=== PATIENT | male | born 1955 | race Two or more races ===

== ENCOUNTER 2025-03-18 15:23 | Inpatient (IN) | payer OTHER ==
[~2025-03-18] VITALS: Ht 188 cm; Wt 130.6 kg
--- NOTE | 2025-03-18 15:37 | ED.PDOC ---
HPI Comments HPI: 69y F who presents to the ED via EMS for chief complaint of tachycardia. - EMS states pt was at gastro group earlier this AM for colonscopy and states after procedure, pt has vitals checked and pt has noted heart rate in the 300's - Pt was given 3 rounds of 5 mg of labetolol and EMS arrived with noted heart rate in the 130's. - EMS states pt otherwise denies associated chest pain or associated symptoms and pt was given no interventions prior to ED arrival - pt now in the ED, with noted heart rate in the 130's with otherwise stable vitals - pt otherwise denies any other symptoms at this time Past Medical history: HLD Past Surgical history: denies Medications: statin Allergies: nkda Social History: denies ETOH, denies tobacco use, denies drug use TACHYCARDIA: HPI: Poor Historian. Colonoscopy was completed today with polyps removal. After colonoscopy under conscious sedation during recovery patient had a heart rate of 300. Patient was given three boluses of 5 mg labetalol. His heart rate is in the 130s currently. Patient denies any associated chest pain or shortness of breath. Patient denies history of hypertension. REVIEW OF SYSTEMS: CONSTITUTIONAL: Denies acute: fever, diaphoresis, chills, generalized weakness. HEAD: Denies acute: headache, photophobia Eyes: Denies acute: Double vision, vision loss, eye pain, eye discharge. EARS: Denies acute: tinnitus, hearing loss, ear discharge, ear pain, THROAT: Denies acute: sore throat, swelling, difficulty swallowing , pain with swallowing, change in voice. NECK: Denies acute: neck pain, neck swelling, stiff neck. HEART: Denies acute : chest pain, palpitations, LUNGS: Denies acute: SOB, wheezing, cough, hemoptysis ABDOMEN: Denies acute: abdominal pain, Nausea, Vomiting, diarrhea, melena , hematemesis, hematochezia SKIN: Denies acute: rash, redness, lesions, itchiness. EXTREMITIES: Denies acute: calf pain, numbness, tingling, weakness, denies pain in extremity. Denies acute: Low back pain. Neuro: Denies acute: focal neurological deficit, motor or sensory focal neurological deficit, tremors, seizure like activity, confusion, dizziness, change in mental status, loss of bowel or bladder function, cauda equina like symptoms. : Denies acute: dysuria, hematuria, flank pain, increase in urinary frequency. PSYCH: Denies acute: hallucination, suicidal ideation, homicidal ideation. PHYSICAL EXAM: General: ----no----acute distress, awake and alert. Head: normocephalic, atraumatic. Neck: supple, trachea is midline, no swelling. Throat: Normal phonation. Eyes:, no erythema, no purulent discharge, no proptosis, no icterus. Heart: regular tachycardic, no significant murmur appreciated. Lungs: no apparent respiratory distress, Able to speak in full sentences. No wheezing, no rhonchi, no crackles. No stridors Clear to auscultation bilaterally. Abdomen: non tender to palpation, non distended, soft, no guarding, no rebound, + bowel sounds. Neuro: Awake, Alert, oriented to name, self, situation, follows commands GCS=15. Speech is normal. Skin: no petechia, no purpura, no cyanosis, non-pale, not jaundice. Lower extremities: --1/4 bilateral- Pitting edema no deformity, no focal swelling, no calf TTP. Makes eye contact. moves all four extremities. Face: no apparent facial droop. ED COURSE: Time Seen by : 15:29 Reviewed Notes: Medications, Allergies Allergies: Coded Allergies: NO KNOWN ALLERGIES (Unverified , 03/18/25) Home Meds Active Scripts Carvedilol (COREG) 3.125 Mg Tab, 3.125 MG PO Q12HR, #60 TAB Prov:EVITA FRANCO MD 03/19/25 Apixaban Base (ELIQUIS) 5 Mg Tab, 5 MG PO BID, #60 TAB Prov:EVITA FRANCO MD 03/19/25 Reported Medications Dutasteride (Avodart) 0.5 Mg Cap, 1 CAP PO DAILY, #30 CAP 5 Refills 03/19/25 Atorvastatin Calcium (ATORVASTATIN CALCIUM) 20 Mg Tab, 1 TAB PO DAILY, #30 TAB 5 Refills 03/19/25 Information Source: Patient, Emergency Med Personnel Mode of Arrival: EMS Was a procedure done? Was a procedure done?: No CP Differential Dx Differential Diagnosis: A-fib, A-Flutter, Angina, Anxiety / Panic Attack, Atrial Dysrhythmia, Digoxin Toxicity, Electrolyte Disorder, Heart Failure, Hyperthyroidism, Hyperventilation, Hypoxia, MAT, NE, PAC's, Pacemaker Malfunction, PSVT, Pulmonary Embolus, PVC's, Renal Failure, Sinus Tachycardia, Torsades De Pointes, Ventricular Dysrhythmia, V-Fib, V-Tach, WPW X-Ray, Labs, Meds, VS Vital Signs Date Time Temp Pulse Resp B/P (MAP) Pulse Ox O2 Delivery O2 Flow Rate FiO2 03/18/25 17:10 56 17 108/57 (74) 94 03/18/25 17:01 118 17 89/53 (65) 92 03/18/25 16:56 138 17 77/42 (54) 93 03/18/25 16:50 113 89/53 03/18/25 16:20 133 03/18/25 16:00 137 03/18/25 15:50 138 112/74 03/18/25 15:45 98.3 136 15 112/74 (87) 95 98.3 03/18/25 15:45 136 15 95 Room Air* 0 21 03/18/25 15:44 97.9 137 16 118/92 (101) 96 97.9 03/18/25 15:35 135 Lab Test 03/18/25 17:00 03/18/25 16:31 03/18/25 15:56 Range/Units Troponin I High Sensitivity 6 6 </=54 ng/L Thyroid Stimulating Hormone (TSH) 1.74 0.55-4.78 uIU/mL POC Glucose 108 H 70-106 mg/dl White Blood Count 5.5 4.4-10.8 10^3/uL Red Blood Count 4.90 4.5-5.90 10^6/uL Hemoglobin 15.7 13.5-17.5 g/dL Hematocrit 45.0 41.0-53.0 % Mean Corpuscular Volume 91.8 80.0-100.0 fL Mean Corpuscular Hemoglobin 32.0 28.0-32.0 pg Mean Corpuscular Hemoglobin Concent 34.8 32.0-36.0 g/dL Red Cell Distribution Width 13.9 11.8-14.3 % Platelet Count 171 140-450 10^3/uL Mean Platelet Volume 8.2 6.9-10.8 fL Neutrophils (%) (Auto) 58.4 37.0-80.0 % Lymphocytes (%) (Auto) 32.3 10.0-50.0 % Monocytes (%) (Auto) 7.5 0.0-12.0 % Eosinophils (%) (Auto) 1.2 0.0-7.0 % Basophils (%) (Auto) 0.6 0.0-2.0 % Neutrophils # (Auto) 3.2 1.6-8.6 10 ^3/uL Lymphocytes # (Auto) 1.8 0.4-5.4 10 ^3/uL Monocytes # (Auto) 0.4 0-1.3 10 ^3/uL Eosinophils # (Auto) 0.1 0-0.8 10 ^3/uL Basophils # (Auto) 0 0-0.2 10 ^3/uL Nucleated Red Blood Cells 0.0 % Sodium Level 140 136-145 mmol/L Potassium Level 4.1 3.5-5.1 mmol/L Chloride Level 106 98-107 mmol/L Carbon Dioxide Level 25 20-31 mmol/L Anion Gap 9 5-15 Blood Urea Nitrogen 15 9-23 mg/dL Creatinine 1.07 0.700-1.30 mg/dL Glomerular Filtration Rate Calc 75 >90 mL/min BUN/Creatinine Ratio 14.0 10.0-20.0 Serum Glucose 99 74-106 mg/dL Lactic Acid Level 1.9 0.4-2.0 mmol/L Calcium Level 8.9 8.7-10.4 mg/dL Magnesium Level 2.0 1.6-2.6 mg/dL Total Bilirubin 0.6 0.2-1.0 mg/dL Aspartate Amino Transferase (AST) 16 13-40 U/L Alanine Aminotransferase (ALT) 24 7-40 U/L Alkaline Phosphatase 73 46-116 U/L Total Protein 6.9 5.7-8.2 g/dL Albumin 4.3 3.2-4.8 g/dL [facility] [id number] [place] [id number] Ph: [phone] DIAGNOSTIC IMAGING Diagnostic Imaging Report : [id number] Signed PATIENT: MAGUE SAWANT ACCT: [id number] UNIT: [id number] : 1955 LOC: ER ROOM / BED: / AGE / SEX: 69 / M ADM STATUS: REG ER SERVICE 1535 ORDERING PHYSICIAN: NIA HOBBS DO PROCEDURE(s): CXRP - CHEST PORTABLE REASON: tachy ORDER NUMBER(s): [id number], ACCESSION NUMBER(s): [id number] INDICATION: tachy TECHNIQUE: Frontal view of the chest. COMPARISON: None FINDINGS: Findings:. The heart and mediastinal contours are grossly unremarkable. There is no evidence of pleural disease. The lungs are clear. The bony structures of the chest are intact without fracture. IMPRESSION: 1. No evidence of acute disease. ATED BY: EVENS CORNELIUS MD DICTATED DATE/TIME: 03/18/25 1559 SIGNED BY: EVENS CORNELIUS MD SIGNED DATE/TIME: 03/18/251558 CC: Time of 1ST Reevaluation: 16:15 (As of now, all labs are still pending) Reevaluation 1ST: Unchanged Time of 2ND Reevaluation: 17:35 (The case was discussed with the admitting team (HPI, physical exam, labs and diagnostic tests that were available at the time of disposition, ED course, treatment plan) on the phone. They agreed to admit the patient to their service and assume care of this patient from this point forward. --- Tamika) Reevaluation 2ND: Resolved Patient Education/Counseling: Diagnosis, Treatment Family Education/Counseling: Other Comments Patient presented with the above HPI.--post anesthesia tachycardic----workup was initiated. patient was found with the above mentioned diagnosis. the following medications were ordered: please refer to order lists of meds and tests obtained by myself Dr. Hobbs. Patient ED course and VS have been stabilized. Patient has been reassessed in the ED and remained in a stable condition. Pertinent incidental findings were discussed with the patient and/or family. Patient/family voices understanding and is agreeable with plan. Patient has been observed in the ED adequate length of time to insure improvement/stability. Escalation of care considered: Consideration of escalation to observation or admission Patient was ADMITTED to the medicine team for further evaluation and treatment of their presentation. All the reports of any imaging studies that were ordered by myself were reviewed by myself. Departure 1 Departure Time of Disposition: 16:15 Impression: Primary Impression: Tachycardia Disposition: ADMITTED INPATIENT Admit to: Tele Condition: Guarded e-Prescriptions Carvedilol (COREG) 3.125 Mg Tab 3.125 MG PO Q12HR, #60 TAB Prov: EVITA FRANCO MD 03/19/25 Apixaban Base (ELIQUIS) 5 Mg Tab 5 MG PO BID, #60 TAB Prov: EVITA FRANCO MD 03/19/25 Discharged With: Self Critical Care Note Critical Care Time?: Yes (1 hr-critical care time only) Heart Score Heart Score: Heart Score Response (Comments) Value History Moderate Suspicious 1 EKG Normal 0 Age <45 0 Risk Factors 1 or 2 risk factors 1 Troponin Normal limit 0 Total 2 I personally scribed for NIA HOBBS DO ([email or web address]) on 03/18/25 at 15:37. Electronically submitted by Nichole Henning (DEAN). I personally scribed for NIA HOBBS DO ([email or web address]) on 03/18/25 at 17:45. Electr onically submitted by Nichole Henning (DEAN). I personally scribed for NIA HOBBS DO ([email or web address]) on 03/18/25 at 19:58. El ectronically submitted by Nichole Henning (DEAN). NIA HOBBS DO March 18, 2025 15:37
[2025-03-18 15:45] VITALS: PULSE 136; RESP 15; O2SAT 95
[2025-03-18] MEDS: SODIUM CHLORIDE 0.9% 1,000 ML IV ONE ×2 (15:50→16:56)
[2025-03-18] MEDS: LABETALOL HCL 20 MG/4 ML VL IV ONE (15:50)
--- NOTE | 2025-03-18 16:02 | DVH ---
INDICATION: tachy TECHNIQUE: Frontal view of the chest. COMPARISON: None FINDINGS: Findings:. The heart and mediastinal contours are grossly unremarkable. There is no evidence of pleu ral disease. The lungs are clear. The bony structures of the chest are intact without fracture. IMPRESSION: 1. No evidence of acute disease.
[2025-03-18 16:25] LABS: Alanine Aminotransferase 24 U/L (7-40); Albumin 4.3 g/dL (3.2-4.8); Alkaline Phosphatase 73 U/L (46-116); Anion Gap 9 (5-15); Aspartate Aminotransferase 16 U/L (13-40); Bilirubin, Total 0.6 mg/dL (0.2-1.0); Blood Urea Nitrogen 15 mg/dL (9-23); Calcium 8.9 mg/dL (8.7-10.4); Carbon Dioxide 25 mmol/L (20-31); Chloride 106 mmol/L (98-107); Glucose 99 mg/dL (74-106); Potassium 4.1 mmol/L (3.5-5.1); Sodium 140 mmol/L (136-145); Total Protein 6.9 g/dL (5.7-8.2)
[2025-03-18] MEDS ORDERED: LABETALOL INJECTION 250 MG in SODIUM CHL 0.9% 200 ML IV ONE (16:30)
[2025-03-18 16:43] LABS: Basophils # (auto) 0 10 ^3/uL (0-0.2); Basophils % (auto) 0.6 % (0.0-2.0); Eosinophils # (auto) 0.1 10 ^3/uL (0-0.8); Eosinophils % (auto) 1.2 % (0.0-7.0); Hemoglobin 15.7 g/dL (13.5-17.5); Lymphocytes # (auto) 1.8 10 ^3/uL (0.4-5.4); Lymphocytes % (auto) 32.3 % (10.0-50.0); Mean Corpuscular Hgb Conc. 34.8 g/dL (32.0-36.0); Mean Corpuscular Volume 91.8 fL (80.0-100.0); Monocytes # (auto) 0.4 10 ^3/uL (0-1.3); Monocytes % (auto) 7.5 % (0.0-12.0); Neutrophils # (auto) 3.2 10 ^3/uL (1.6-8.6); Neutrophils % (auto) 58.4 % (37.0-80.0); Platelet Count (auto) 171 10^3/uL (140-450); Red Cell Distribution Width 13.9 % (11.8-14.3); White Blood Cell 5.5 10^3/uL (4.4-10.8)
[2025-03-18] MEDS ORDERED: MORPHINE SULFATE INJ 2 MG/ml SYRG IV PRN ×2 (17:30)
[2025-03-18] MEDS ORDERED: NITROGLYCERIN 0.4 MG SL TAB SL PRN (17:30)
[2025-03-18] MEDS ORDERED: HYDROcodone-ACET 5/325MG TAB PO PRN (17:30)
[2025-03-18] MEDS ORDERED: DOCUSATE SOD 100 MG CAP PO PRN (17:30)
[2025-03-18] MEDS ORDERED: ACETAMINOPHEN 325 MG TAB PO PRN (17:30)
[2025-03-18] MEDS: SODIUM CHLORIDE 0.9% 1,000 ML IV SCH (17:53)
--- NOTE | 2025-03-18 18:48 | ECG ---
[facility] Test Date: 2025-03-18 Test Time: 18:36:58 Pat Name: MAGUE OWENS Department: 16 Room: [address] [place] [address] Gender: M Tie Presser: RADHA : 1955 Requested By: NIA HOBBS Order Number: [id number] Reading MD: Measurements Intervals Dow Rate: 116 P: 0 IL: 0 QRS: 95 QRSD: 129 T: 55 QT: 374 QTc: 520 Interpretive Statements Atrial flutter with 2:1 AV block Ventricular premature complex Nonspecific intraventricular conduction delay Anteroseptal infarct, age indeterminate Please click the below link to view image of tracing.
--- NOTE | 2025-03-18 19:07 | ECG ---
[facility] Test Date: 2025-03-18 Test Time: 15:33:14 Pat Name: MAGUE OWENS Department: ED Room: [address] [place] [address] Gender: M Shampoo Assistant: JAYDE : 1955 Requested By: NIA HOBBS Order Number: [id number] Reading MD: Measurements Intervals Alvin Rate: 135 P: 0 OR: 0 QRS: 71 QRSD: 134 T: 16 QT: 372 QTc: 558 Interpretive Statements Junctional tachycardia Nonspecific intraventricular conduction delay Borderline ST elevation, lateral leads Please click the below link to view image of tracing.
[2025-03-18 21:09] VITALS: BP 107/70; PULSE 106; PULSE 64; RESP 17; RESP 18; TEMP 97.9; O2SAT 94
[2025-03-18] MEDS: CARVEDILOL 3.125 MG TAB PO SCH (22:36)
[2025-03-19] MEDS ORDERED: DUTA0.5C11 PO (00:28)
[2025-03-19] MEDS ORDERED: ATOR20TA50 PO (00:28)
[2025-03-19 01:00] VITALS: BP 125/71; PULSE 67; RESP 17; TEMP 97.7; O2SAT 95
--- NOTE | 2025-03-19 02:24 | DVHHP2 ---
ALE SWANN PROJECT MANAGER PROCESS DEVELOPMENT 03/19/25 0224: History of Present Illness Reason for Visit: tachycardia History of Present Illness 69-year-old male was brought into the emergency department with complaints of tachycardia. Information in this HPI is limited due to the patient being a poor historian. Patient initially went into for a colonoscopy with a gastro group and heart rate went was found to be in the 300s. Patient currently denies any shortness of breath, chest pain, leg swelling, palpitations. Cardiovascular: hyperipidemia Smoke: No ALCOHOL: none Drugs: None Lives: with Family Review of Systems Constitutional: No: Fever, Chills, Sweats, Weakness, Malaise, Other Eyes: No: Pain, Vision change, Conjunctivae inflammation, Eyelid inflammation, Other, Redness ENT: No: Ear pain, Ear discharge, Nose pain, Nose discharge, Nose congestion, Mouth pain, Mouth swelling, Throat pain, Throat swelling, Other Respiratory: No: Cough, Dry, Shortness of breath, SOB with excertion, Wheezing, Hemoptysis, Pleuritic Pain, Sputum, Wheezing, Other Cardiovascular: No: Chest Pain, Palpitations, Orthopnea, Paroxysmal Noc. Dysp haseeb, Edema, Lt Headedness, Other Gastrointestinal: No: Nausea, Vomiting, Abdominal Pain, Diarrhea, Constipation, Melena, Hematochezia, Other Genitourinary: No Dysuria, No Frequency, No Incontinence, No Hematuria, No Retention, No Other Musculoskeletal: No: other, neck pain, shoulder pain, arm pain, back pain, hand pain, leg pain, foot pain Skin: No: Rash, Lesions, Jaundice, Bruising, Other Neurological: No: Weakness, Numbness, Incoordination, Change in speech, Confusion, Seizures, Other Allergies: Coded Allergies: NO KNOWN ALLERGIES (Unverified , 03/18/25) Medications Current Medications Medications Dose Ordered Sig/Estevan Route Start Time Stop Time Status Last Admin Dose Admin Sodium Chloride 1,000 ml @ 120 mls/hr Q8H20M IV 03/18/25 17:30 03/18/25 17:53 120 MLS/HR Acetaminophen/ Hydrocodone Bitart 1 tab Q4HP PRN PO 03/18/25 17:30 Docusate Sodium 100 mg BIDPRN PRN PO 03/18/25 17:30 Enoxaparin Sodium 40 mg DAILY SC 03/19/25 10:00 Acetaminophen 650 mg Q6HP PRN PO 03/18/25 17:30 Morphine Sulfate 2 mg Q4HPRN PRN IV 03/18/25 17:30 Nitroglycerin 0.4 mg Q5MINP PRN SL 03/18/25 17:30 Morphine Sulfate 2 mg Q30M PRN IV 03/18/25 17:30 Carvedilol 3.125 mg Q12HR PO 03/18/25 22:00 03/18/25 22:36 3.125 MG Exam Vital Signs Vital Signs Date Time Temp Pulse Resp B/P (MAP) Pulse Ox O2 Delivery O2 Flow Rate FiO2 03/19/25 01:00 97.7 67 17 125/71 (89) 95 97.7 03/18/25 21:09 Room Air* 0 21 General Appearance: Alert, Oriented X3, No acute distress HEENT: Atraumatic, PERRLA, EOMI Respiratory: Clear to auscultation, Normal air movement Cardiovascular: Regular rate, Normal S1, Normal S2 Abdominal: Normal bowel sounds, Soft, No tenderness Extremities: No clubbing, No cyanosis, Other (BLE edema) Skin: No rashes, No breakdown Neuro: Normal speech, Strength at 5/5 X4 ext Labs/Xrays Labs Test 03/18/25 19:04 03/18/25 17:00 03/18/25 16:31 03/18/25 15:56 Range/Units Troponin I High Sensitivity 7 </=54 ng/L Thyroid Stimulating Hormone (TSH) 1.74 0.55-4.78 uIU/mL POC Glucose 108 H 70-106 mg/dl White Blood Count 5.5 4.4-10.8 10^3/uL Red Blood Count 4.90 4.5-5.90 10^6/uL Hemoglobin 15.7 13.5-17.5 g/dL Hematocrit 45.0 41.0-53.0 % Mean Corpuscular Volume 91.8 80.0-100.0 fL Mean Corpuscular Hemoglobin 32.0 28.0-32.0 pg Mean Corpuscular Hemoglobin Concent 34.8 32.0-36.0 g/dL Red Cell Distribution Width 13.9 11.8-14.3 % Platelet Count 171 140-450 10^3/uL Mean Platelet Volume 8.2 6.9-10.8 fL Neutrophils (%) (Auto) 58.4 37.0-80.0 % Lymphocytes (%) (Auto) 32.3 10.0-50.0 % Monocytes (%) (Auto) 7.5 0.0-12.0 % Eosinophils (%) (Auto) 1.2 0.0-7.0 % Basophils (%) (Auto) 0.6 0.0-2.0 % Neutrophils # (Auto) 3.2 1.6-8.6 10 ^3/uL Lymphocytes # (Auto) 1.8 0.4-5.4 10 ^3/uL Monocytes # (Auto) 0.4 0-1.3 10 ^3/uL Eosinophils # (Auto) 0.1 0-0.8 10 ^3/uL Basophils # (Auto) 0 0-0.2 10 ^3/uL Nucleated Red Blood Cells 0.0 % Sodium Level 140 136-145 mmol/L Potassium Level 4.1 3.5-5.1 mmol/L Chloride Level 106 98-107 mmol/L Carbon Dioxide Level 25 20-31 mmol/L Anion Gap 9 5-15 Blood Urea Nitrogen 15 9-23 mg/dL Creatinine 1.07 0.700-1.30 mg/dL Glomerular Filtration Rate Calc 75 >90 mL/min BUN/Creatinine Ratio 14.0 10.0-20.0 Serum Glucose 99 74-106 mg/dL Lactic Acid Level 1.9 0.4-2.0 mmol/L Calcium Level 8.9 8.7-10.4 mg/dL Magnesium Level 2.0 1.6-2.6 mg/dL Total Bilirubin 0.6 0.2-1.0 mg/dL Aspartate Amino Transferase (AST) 16 13-40 U/L Alanine Aminotransferase (ALT) 24 7-40 U/L Alkaline Phosphatase 73 46-116 U/L Total Protein 6.9 5.7-8.2 g/dL Albumin 4.3 3.2-4.8 g/dL Assessment/Plan Assessment/Plan Tachycardia Plan Admit telemetry Cardiology consult. Echocardiogram. Continue home medications after reconciliation completed. PT evaluation. GI ppx protonix / dvt ppx lovenox Plan discussed with: Patient Date of Service: March 19, 2025 Billing Provider: EVITA FRANCO MD Common Visit Codes: NOT BILLABLE EVITA FRANCO MD 03/21/25 1720: Review of Systems Allergies: Coded Allergies: NO KNOWN ALLERGIES (Unverified , 03/18/25) ALE SWANN NP March 19, 2025 02:24 EVITA FRANCO MD March 21, 2025 17:20
[2025-03-19 05:00] VITALS: BP 111/66; PULSE 67; RESP 18; TEMP 98.1; O2SAT 98
--- NOTE | 2025-03-19 06:26 | ECG ---
[facility] Test Date: 2025-03-18 Test Time: 16:18:49 Pat Name: MAGUE OWENS Department: ED Room: 0295T Gender: M Music Intern: JAYDE : 1955 Requested By: NIA HOBBS Order Number: [id number] Reading MD: Measurements Intervals Franklin Rate: 133 P: 0 CO: 0 QRS: 64 QRSD: 106 T: 26 QT: 367 QTc: 546 Interpretive Statements Junctional tachycardia Inferior infarct, acute (LCx) Lateral leads are also involved Prolonged QT interval Please click the below link to view image of tracing.
[2025-03-19 08:00] VITALS: PULSE 53; O2SAT 95
[2025-03-19] MEDS: ENOXAPARIN SOD 40 MG/0.4 ML SYRINGE SC SCH (08:46)
[2025-03-19 09:00] VITALS: BP 124/64; PULSE 64; RESP 18; TEMP 97.4; O2SAT 93
--- NOTE | 2025-03-19 11:42 | DVHINCON2 ---
Date Seen: March 19, 2025 Reason for Consultation Tachycardia History of Present Illness This is a 69-year-old male with past medical history of dyslipidemia, hypertension, ?Sleep apnea referred to the hospital due to high heart rate. Per patient, yesterday upon performing colonoscopy his heart rate raised to 300 and the patient was referred to the hospital. Upon hospital admission, the patient EKGs showed AFib with RVR. Patient denies any symptoms including chest pain, shortness of breath, palpitation, nausea, vomiting, cough, fever, or any recent sick contact. PMHx: dyslipidemia, hypertension, ?Sleep apnea PSHx: Not significant Family history: Noncontributory Social history: Ex-smoker with 30 pack year history, denies currently any other drug use Home medication: Atorvastatin and albuterol Allergic history: No known allergy Patient seen and examined at the bedside. Patient is currently asymptomatic. Past Medical History Per H&P Past Surgical History Per H&P Family History: Cardiovascular disease G8 MOTHER G8 FATHER Allergies: Coded Allergies: NO KNOWN ALLERGIES (Unverified , 03/18/25) Home Meds Active Scripts Carvedilol (COREG) 3.125 Mg Tab, 3.125 MG PO Q12HR, #60 TAB Prov:EVITA FRANCO MD 03/19/25 Apixaban Base (ELIQUIS) 5 Mg Tab, 5 MG PO BID, #60 TAB Prov:EVITA FRANCO MD 03/19/25 Reported Medications Dutasteride (Avodart) 0.5 Mg Cap, 1 CAP PO DAILY, #30 CAP 5 Refills 03/19/25 Atorvastatin Calcium (ATORVASTATIN CALCIUM) 20 Mg Tab, 1 TAB PO DAILY, #30 TAB 5 Refills 03/19/25 Current Medications Current Medications Medications (Trade) Dose Ordered Sig/Estevan Route PRN Reason Start Time Stop Time Status Last Admin Sodium Chloride 1,000 ml @ 120 mls/hr Q8H20M IV 03/18/25 17:30 03/19/25 08:54 Acetaminophen/ Hydrocodone Bitart (Walling 5/325MG Tab) 1 tab Q4HP PRN PO MODERATE PAIN (4-6 PAIN SCALE) 03/18/25 17:30 Docusate Sodium (Colace Capsule) 100 mg BIDPRN PRN PO FOR CONSTIPATION 03/18/25 17:30 Enoxaparin Sodium (Lovenox) 40 mg DAILY SC 03/19/25 10:00 03/19/25 08:46 Acetaminophen (Tylenol Tablet) 650 mg Q6HP PRN PO PAIN SCALE 1-3 OR TEMP>100.4 03/18/25 17:30 Morphine Sulfate 2 mg Q4HPRN PRN IV SEVERE PAIN (7-10 PAIN SCALE) 03/18/25 17:30 Nitroglycerin (Ntrostat Sublingual) 0.4 mg Q5MINP PRN SL FOR CHEST PAIN 03/18/25 17:30 Morphine Sulfate 2 mg Q30M PRN IV FOR CHEST PAIN 03/18/25 17:30 Carvedilol (Coreg Tablet) 3.125 mg Q12HR PO 03/18/25 22:00 03/19/25 08:45 Vital Signs Vital Signs Date Time Temp Pulse Resp B/P (MAP) Pulse Ox O2 Delivery O2 Flow Rate FiO2 03/19/25 09:45 62 110/59 03/19/25 09:00 97.4 18 93 97.4 03/19/25 08:00 Room Air* 0 21 Physical Exam General Appearance: Alert, Oriented X3, Cooperative, No acute distress HEENT: Atraumatic, PERRLA, EOMI, Mucous membrane moist/pink Respiratory: Clear to auscultation, Normal air movement Cardiovascular: Regular rate, Normal S1, Normal S2, No murmurs, no chest wall tenderness Abdominal: Normal bowel sounds, Soft, No tenderness, No hepatospenomegaly, No masses Extremities: No clubbing, No cyanosis, No edema, Normal pulses, No tenderness/swelling Skin: No rashes, No breakdown, No significant lesion Neuro: Normal gait, Normal speech, Strength at 5/5 X4 ext, Normal tone, Sensation intact, Cranial nerves 3-12 NL, Reflexes 2+ Psych/Mental Status: Mental status NL, Mood NL Labs/Diagnostic Data Labs Test 03/19/25 09:17 03/18/25 19:04 03/18/25 17:00 03/18/25 16:31 Range/Units Plasma/Serum Blood Alcohol < 3.0 <10 mg/dL Troponin I High Sensitivity 7 </=54 ng/L Thyroid Stimulating Hormone (TSH) 1.74 0.55-4.78 uIU/mL POC Glucose 108 H 70-106 mg/dl Test 03/18/25 15:56 Range/Units White Blood Count 5.5 4.4-10.8 10^3/uL Red Blood Count 4.90 4.5-5.90 10^6/uL Hemoglobin 15.7 13.5-17.5 g/dL Hematocrit 45.0 41.0-53.0 % Mean Corpuscular Volume 91.8 80.0-100.0 fL Mean Corpuscular Hemoglobin 32.0 28.0-32.0 pg Mean Corpuscular Hemoglobin Concent 34.8 32.0-36.0 g/dL Red Cell Distribution Width 13.9 11.8-14.3 % Platelet Count 171 140-450 10^3/uL Mean Platelet Volume 8.2 6.9-10.8 fL Neutrophils (%) (Auto) 58.4 37.0-80.0 % Lymphocytes (%) (Auto) 32.3 10.0-50.0 % Monocytes (%) (Auto) 7.5 0.0-12.0 % Eosinophils (%) (Auto) 1.2 0.0-7.0 % Basophils (%) (Auto) 0.6 0.0-2.0 % Neutrophils # (Auto) 3.2 1.6-8.6 10 ^3/uL Lymphocytes # (Auto) 1.8 0.4-5.4 10 ^3/uL Monocytes # (Auto) 0.4 0-1.3 10 ^3/uL Eosinophils # (Auto) 0.1 0-0.8 10 ^3/uL Basophils # (Auto) 0 0-0.2 10 ^3/uL Nucleated Red Blood Cells 0.0 % Sodium Level 140 136-145 mmol/L Potassium Level 4.1 3.5-5.1 mmol/L Chloride Level 106 98-107 mmol/L Carbon Dioxide Level 25 20-31 mmol/L Anion Gap 9 5-15 Blood Urea Nitrogen 15 9-23 mg/dL Creatinine 1.07 0.700-1.30 mg/dL Glomerular Filtration Rate Calc 75 >90 mL/min BUN/Creatinine Ratio 14.0 10.0-20.0 Serum Glucose 99 74-106 mg/dL Lactic Acid Level 1.9 0.4-2.0 mmol/L Calcium Level 8.9 8.7-10.4 mg/dL Magnesium Level 2.0 1.6-2.6 mg/dL Total Bilirubin 0.6 0.2-1.0 mg/dL Aspartate Amino Transferase (AST) 16 13-40 U/L Alanine Aminotransferase (ALT) 24 7-40 U/L Alkaline Phosphatase 73 46-116 U/L Total Protein 6.9 5.7-8.2 g/dL Albumin 4.3 3.2-4.8 g/dL Assessment Atrial fibrillation (stage IIIA), with RVR, currently sinus rhythm Hypercoagulable state Hypertension Dyslipidemia ? Sleep apnea Obesity * EKG upon admission shows AFib with RVR, today morning EKGs shows sinus rhythm with no significant ST or T-wave changes * Trop I and BNP is are within normal limits * Chads Vasc score: 2 Plan/Recommendation Case discussed with Dr. Villaseñor) * Continue apixaban and atorvastatin * Keep K above 4, and Mag above 2 * Discharge plan: Apixaban 5 mg b.i.d., patient needs cardiac event monitoring on outpatient basis for possible ablation/antiarrhythmic treatment, he also needs sleep study to confirm sleep apnea * We sign off the patient * Rest of plan, per primary team Thank you for allowing us to participate in this patient's care. Please call if you have any questions or concerns. Plan discussed with: Patient, Spouse, Other (RN) Date of Service: March 19, 2025 Billing Provider: DELL TOMPKINS Cardiology Common Codes: [id number] INP/OBS CARE (High) CHRISTINE VELASQUEZ RESDIKIMBERLEE March 19, 2025 11:42
[2025-03-19 13:00] VITALS: BP 110/67; PULSE 60; RESP 18; TEMP 98.1; O2SAT 92
[2025-03-19] MEDS ORDERED: CARV-214 PO (14:16)
[2025-03-19] MEDS ORDERED: APIX5TAB PO (14:16)
--- NOTE | 2025-03-19 14:19 | DVHDS2 ---
Discharge Summary Date of Admission March 18, 2025 at 17:29 Date of Discharge: March 19, 2025 Labs/Diagnostic Data: Laboratory Results Test 03/19/25 09:17 03/18/25 19:04 03/18/25 17:00 03/18/25 16:31 Plasma/Serum Blood Alcohol < 3.0 mg/dL (<10) Troponin I High Sensitivity 7 ng/L (</=54) Thyroid Stimulating Hormone (TSH) 1.74 uIU/mL (0.55-4.78) POC Glucose 108 mg/dl (70-106) Test 03/18/25 15:56 White Blood Count 5.5 10^3/uL (4.4-10.8) Red Blood Count 4.90 10^6/uL (4.5-5.90) Hemoglobin 15.7 g/dL (13.5-17.5) Hematocrit 45.0 % (41.0-53.0) Mean Corpuscular Volume 91.8 fL (80.0-100.0) Mean Corpuscular Hemoglobin 32.0 pg (28.0-32.0) Mean Corpuscular Hemoglobin Concent 34.8 g/dL (32.0-36.0) Red Cell Distribution Width 13.9 % (11.8-14.3) Platelet Count 171 10^3/uL (140-450) Mean Platelet Volume 8.2 fL (6.9-10.8) Neutrophils (%) (Auto) 58.4 % (37.0-80.0) Lymphocytes (%) (Auto) 32.3 % (10.0-50.0) Monocytes (%) (Auto) 7.5 % (0.0-12.0) Eosinophils (%) (Auto) 1.2 % (0.0-7.0) Basophils (%) (Auto) 0.6 % (0.0-2.0) Neutrophils # (Auto) 3.2 10 ^3/uL (1.6-8.6) Lymphocytes # (Auto) 1.8 10 ^3/uL (0.4-5.4) Monocytes # (Auto) 0.4 10 ^3/uL (0-1.3) Eosinophils # (Auto) 0.1 10 ^3/uL (0-0.8) Basophils # (Auto) 0 10 ^3/uL (0-0.2) Nucleated Red Blood Cells 0.0 % Sodium Level 140 mmol/L (136-145) Potassium Level 4.1 mmol/L (3.5-5.1) Chloride Level 106 mmol/L (98-107) Carbon Dioxide Level 25 mmol/L (20-31) Anion Gap 9 (5-15) Blood Urea Nitrogen 15 mg/dL (9-23) Creatinine 1.07 mg/dL (0.700-1.30) Glomerular Filtration Rate Calc 75 mL/min (>90) BUN/Creatinine Ratio 14.0 (10.0-20.0) Serum Glucose 99 mg/dL (74-106) Lactic Acid Level 1.9 mmol/L (0.4-2.0) Calcium Level 8.9 mg/dL (8.7-10.4) Magnesium Level 2.0 mg/dL (1.6-2.6) Total Bilirubin 0.6 mg/dL (0.2-1.0) Aspartate Amino Transferase (AST) 16 U/L (13-40) Alanine Aminotransferase (ALT) 24 U/L (7-40) Alkaline Phosphatase 73 U/L (46-116) Total Protein 6.9 g/dL (5.7-8.2) Albumin 4.3 g/dL (3.2-4.8) Other Laboratory Tests 03/18/25 15:56 Brief Hx & Hospital Course: 69-year-old male with a known history of hypertension, BPH who underwent elective colonoscopy outpatient found to have polyps which was removed also found to have hemorrhoids presented to the hospital with heart rate into 150- 300, status post labetalol eventually found to have AFib with RVR. The patient was seen by Cardiology underwent 2D echo as well. Patient was started on Eliquis and beta wilbur. The patient currently being discharged under stable condition with close follow up as an outpatient with PCP as well as Cardiology. Condition at Discharge: Stable Final Diagnosis/Problems List 1. AFib with a RVR currently in normal sinus rhythm 2. Hypertension 3. Dyslipidemia 4. BPH 5. Morbid obesity classII Discharge Disposition: Home SNF Discharge Will this Physician continue t: No Discharge Instruct/Medications Diet: Cardiac 2g Na,low cholest Activity: No Restrictions, As Tolerated Follow Up/Referral: Follow up with the PCP in 1-2 weeks Follow up with the Cardiology in 1-2 weeks Medications: New prescription as prescribed Discharge Statement: "Patient was advised to return to the ER or call 911 if any headaches, dizziness, shortness of breath, chest pain, abdominal pain, bleeding, fevers, or worsening of medical condition. Patient was counseled about treatment plan, medications, possible side effects, patientverbalized understanding. All questions were answered to the best of my ability. This discharge took greater then 30 minutes in planning, reviewing documentation, counseling the patient, and discussing with other team members." ASSESSMENT ASSESSMENT Assessment 1. AFib with a RVR currently in normal sinus rhythm 2. Hypertension 3. Dyslipidemia 4. BPH 5. Morbid obesity classII Date of Service: March 19, 2025 Billing Provider: EVITA FRANCO MD Common Visit Codes: NOT BILLABLE EVITA FRANCO MD March 19, 2025 14:19
[2025-03-19 15:21] VITALS: BP 110/59; PULSE 62
--- NOTE | 2025-03-19 19:01 | DVHINCON2 ---
Date Seen: March 19, 2025 Referring Physician Tamika Reason for Consultation Tachycardia History of Present Illness This is a 69-year-old male with a past medical history of dyslipidemia, hypertension, ?Sleep apnea who presented to the ED with complaints of a high heart rate. Per patient, yesterday upon performing colonoscopy his heart rate raised to 300 and the patient was referred to the hospital. Upon hospital admission, the patient EKGs showed AFib with RVR. Troponin is negative x3. Chest x-ray showed NAD. Patient was admitted to the hospital. I am asked to consult on this patient. Family History: Cardiovascular disease G8 MOTHER G8 FATHER Allergies: Coded Allergies: NO KNOWN ALLERGIES (Unverified , 03/18/25) Home Meds Active Scripts Carvedilol (COREG) 3.125 Mg Tab, 3.125 MG PO Q12HR, #60 TAB Prov:EVITA FRANCO MD 03/19/25 Apixaban Base (ELIQUIS) 5 Mg Tab, 5 MG PO BID, #60 TAB Prov:EVITA FRANCO MD 03/19/25 Reported Medications Dutasteride (Avodart) 0.5 Mg Cap, 1 CAP PO DAILY, #30 CAP 5 Refills 03/19/25 Atorvastatin Calcium (ATORVASTATIN CALCIUM) 20 Mg Tab, 1 TAB PO DAILY, #30 TAB 5 Refills 03/19/25 Current Medications Current Medications Medications (Trade) Dose Ordered Sig/Estevan Route PRN Reason Start Time Stop Time Status Last Admin Sodium Chloride 1,000 ml @ 120 mls/hr Q8H20M IV 03/18/25 17:30 03/19/25 08:54 Acetaminophen/ Hydrocodone Bitart (Humphreys 5/325MG Tab) 1 tab Q4HP PRN PO MODERATE PAIN (4-6 PAIN SCALE) 03/18/25 17:30 Docusate Sodium (Colace Capsule) 100 mg BIDPRN PRN PO FOR CONSTIPATION 03/18/25 17:30 Enoxaparin Sodium (Lovenox) 40 mg DAILY SC 03/19/25 10:00 03/19/25 11:43 DC 03/19/25 08:46 Acetaminophen (Tylenol Tablet) 650 mg Q6HP PRN PO PAIN SCALE 1-3 OR TEMP>100.4 03/18/25 17:30 Morphine Sulfate 2 mg Q4HPRN PRN IV SEVERE PAIN (7-10 PAIN SCALE) 03/18/25 17:30 Nitroglycerin (Ntrostat Sublingual) 0.4 mg Q5MINP PRN SL FOR CHEST PAIN 03/18/25 17:30 Morphine Sulfate 2 mg Q30M PRN IV FOR CHEST PAIN 03/18/25 17:30 Carvedilol (Coreg Tablet) 3.125 mg Q12HR PO 03/18/25 22:00 03/19/25 08:45 Apixaban (Eliquis) 5 mg BID PO 03/19/25 22:00 Review of Systems CONSTITUTIONAL: Denies acute: fever, diaphoresis, chills, generalized weakness. HEAD:Denies acute: headache, photophobia Eyes: Denies acute: Double vision, vision loss, eye pain, eye discharge. EARS: Denies acute: tinnitus, hearing loss, ear discharge, ear pain, THROAT: Denies acute: sore throat, swelling, difficulty swallowing , pain with swallowing, change in voice. NECK:Denies acute: neck pain, neck swelling, stiff neck. HEART:Denies acute : chest pain, palpitations, LUNGS:Denies acute: SOB, wheezing, cough, hemoptysis ABDOMEN:Denies acute: abdominal pain, Nausea, Vomiting, diarrhea, melena , hematemesis, hematochezia SKIN:Denies acute: rash, redness, lesions, itchiness. EXTREMITIES: Denies acute: calf pain, numbness, tingling, weakness, denies pain in extremity. Denies acute: Low back pain. Neuro: Denies acute: focal neurological deficit, motor or sensory focal neurol ogical deficit, tremors, seizure like activity, confusion, dizziness, change in mental status, loss of bowel or bladder function, cauda equina like symptoms. : Denies acute: dysuria, hematuria, flank pain, increase in urinary frequency. PSYCH: Denies acute: hallucination, suicidal ideation, homicidal ideation. Vital Signs Vital Signs Date Time Temp Pulse Resp B/P (MAP) Pulse Ox O2 Delivery O2 Flow Rate FiO2 03/19/25 09:45 62 110/59 03/19/25 09:00 97.4 18 93 97.4 03/19/25 08:00 Room Air* 0 21 Physical Exam GENERAL: Alert and oriented x 3. No acute distress. EYES: PERRL, EOMI. Anicteric. HENT: Moist mucous membranes. LUNGS: Clear to auscultation bilaterally. CARDIOVASCULAR: Regular rate and rhythm. ABDOMEN: Soft, nontender and nondistended. EXTREMITIES: No edema. NEUROLOGIC: No focal neurological deficits. SKIN: Warm, dry. Labs/Diagnostic Data Labs Test 03/19/25 09:17 03/18/25 19:04 03/18/25 17:00 03/18/25 16:31 Range/Units Plasma/Serum Blood Alcohol < 3.0 <10 mg/dL Troponin I High Sensitivity 7 </=54 ng/L Thyroid Stimulating Hormone (TSH) 1.74 0.55-4.78 uIU/mL POC Glucose 108 H 70-106 mg/dl Test 03/18/25 15:56 Range/Units White Blood Count 5.5 4.4-10.8 10^3/uL Red Blood Count 4.90 4.5-5.90 10^6/uL Hemoglobin 15.7 13.5-17.5 g/dL Hematocrit 45.0 41.0-53.0 % Mean Corpuscular Volume 91.8 80.0-100.0 fL Mean Corpuscular Hemoglobin 32.0 28.0-32.0 pg Mean Corpuscular Hemoglobin Concent 34.8 32.0-36.0 g/dL Red Cell Distribution Width 13.9 11.8-14.3 % Platelet Count 171 140-450 10^3/uL Mean Platelet Volume 8.2 6.9-10.8 fL Neutrophils (%) (Auto) 58.4 37.0-80.0 % Lymphocytes (%) (Auto) 32.3 10.0-50.0 % Monocytes (%) (Auto) 7.5 0.0-12.0 % Eosinophils (%) (Auto) 1.2 0.0-7.0 % Basophils (%) (Auto) 0.6 0.0-2.0 % Neutrophils # (Auto) 3.2 1.6-8.6 10 ^3/uL Lymphocytes # (Auto) 1.8 0.4-5.4 10 ^3/uL Monocytes # (Auto) 0.4 0-1.3 10 ^3/uL Eosinophils # (Auto) 0.1 0-0.8 10 ^3/uL Basophils # (Auto) 0 0-0.2 10 ^3/uL Nucleated Red Blood Cells 0.0 % Sodium Level 140 136-145 mmol/L Potassium Level 4.1 3.5-5.1 mmol/L Chloride Level 106 98-107 mmol/L Carbon Dioxide Level 25 20-31 mmol/L Anion Gap 9 5-15 Blood Urea Nitrogen 15 9-23 mg/dL Creatinine 1.07 0.700-1.30 mg/dL Glomerular Filtration Rate Calc 75 >90 mL/min BUN/Creatinine Ratio 14.0 10.0-20.0 Serum Glucose 99 74-106 mg/dL Lactic Acid Level 1.9 0.4-2.0 mmol/L Calcium Level 8.9 8.7-10.4 mg/dL Magnesium Level 2.0 1.6-2.6 mg/dL Total Bilirubin 0.6 0.2-1.0 mg/dL Aspartate Amino Transferase (AST) 16 13-40 U/L Alanine Aminotransferase (ALT) 24 7-40 U/L Alkaline Phosphatase 73 46-116 U/L Total Protein 6.9 5.7-8.2 g/dL Albumin 4.3 3.2-4.8 g/dL Assessment Atrial fibrillation (stage IIIA), with RVR, currently sinus rhythm. Hypercoagulable state. Hypertension. Dyslipidemia. ? Sleep apnea. Obesity. Plan/Recommendation I agree with your ongoing assessment and care of plan. Patient has been seen by Brad Gutiérrezmeghan Resident, we have discussed the plan with the patient. EKG upon admission shows AFib with RVR, today morning EKGs shows sinus rhythm with no significant ST or T-wave changes. Trop I and BNP is are within normal limits. Chads Vasc score: 2. Continue apixaban and atorvastatin. Keep K above 4, and Mag above 2. Discharge plan: Apixaban 5 mg b.i.d., patient needs cardiac event monitoring on outpatient basis for possible ablation/antiarrhythmic treatment, he also needs sleep study to confirm sleep apnea. Check echocardiogram. Rest of plan, per primary team. Additional plan as per the hospital course. Plan discussed with: Patient NYHA Physical activity limitations: NA Date of Service: March 19, 2025 Billing Provider: JARETT UNGER MD Cardiology Common Codes: 91654[facility] Cardiology Consultation Codes: [id number] CONSULT <45MIN JARETT UNGER MD March 19, 2025 12:32
[2025-03-19] MEDS ORDERED: APIXABAN 5 MG TAB PO SCH (22:00)
--- NOTE | 2025-03-20 01:07 | DVHSR ---
APPROVED REPORT EXAM: Two-dimensional and M-mode echocardiogram with Doppler and color Doppler. Blood Pressure: 111/66 mmHg INDICATION SVT RISK FACTORS Obesity: Height: 6'2, Weight: 287 DIMENSIONS LVDd5.6 (3.8-5.7cm)LA (2D)4.7 (1.9-4.0cm)Aortic Root3.6 (2.0-3.7cm) LVDs3.6 (2.5-4.0cm)LA (MM) (1.9-4.0cm)Aortic Cusp Exc1.9 (1.5-2.0cm) EF (%) 55.0 (55-70%)Rt. Atrium6.5 (1.9-4.0cm)Asc. Aorta3.4 cm IVSd1.3 (0.7-1.1cm)RV (D)5.3 (1.8-2.4cm) PWd1.0 (0.7-1.1cm) Mitral Valve MitralMitral Stenosis E wave0.87m/sMV Mean GR.mmHg A wave0.53m/sMV Peak GR.70mmHg E/A ratio1.62D MVAcm2 DECEL [id number] 1/2 [place] Aortic Valve Aortic ValveAortic Stenosis V11.07m/Kaiden Mean GR.4mmHg V21.36m/Kaiden Peak GR.7mmHg LVOT Diameter2.6 (1.8-2.4cm)Doppler AVA4.18cm2 AI P 1/2 Zdij463.23ms Pulmonic Valve V20.95m/s Tricuspid Valve TR Velocity2.77m/s [id number] Conclusion MILD LVH AND MILD LV DIASTOLIC DYSFUNCTION LV EF IS 65% MODERATELY DILATED RV MODERATE DEGREE PULMONARY HYPERTENSION NORMAL VALVES NO EFFUSION
--- NOTE | 2025-03-20 11:01 | ECG ---
[facility] Test Date: 2025-03-19 Test Time: 10:54:10 Pat Name: MAGUE OWENS Department: Room: 0295T B Gender: M Degreaser: MILAGRO : 1955 Requested By: CHRISTINE VELASQUEZ Order Number: [id number] Reading MD: Measurements Intervals [place] Rate: 63 P: 15 AL: 172 QRS: -1 QRSD: 116 T: 20 QT: 445 QTc: 456 Interpretive Statements Sinus rhythm Atrial premature complex Nonspecific intraventricular conduction delay Please click the below link to view image of tracing.
== END 2025-03-19 15:56 | disposition home or self-care (01) | DRG 309 ==
LOC: EDBD 15:23 → ER 15:23 → OVERFLOW 17:29 → TELE-WESTW 21:03
PROVIDERS: ADMIT Internal Medicine; ATTEND Internal Medicine
DX: I48.91 Unspecified atrial fibrillation (principal); D68.59 Other primary thrombophilia; I10 Essential (primary) hypertension; E78.5 Hyperlipidemia, unspecified; Z68.37 Body mass index [BMI] 37.0-37.9, adult; N40.0 Benign prostatic hyperplasia without lower urinary tract symptoms; E66.01 Morbid (severe) obesity due to excess calories; Z79.01 Long term (current) use of anticoagulants; Z82.49 Family history of ischemic heart disease and other diseases of the circulatory system; Z87.891 Personal history of nicotine dependence; Z79.899 Other long term (current) drug therapy; Z79.02 Long term (current) use of antithrombotics/antiplatelets
CPT/HCPCS: 36415; 71045; 80053; 80320; 82962; 83605; 83735; 84443; 84484; 85025; 93005; 93306; 96361; 96374; 97163; 99291; G0378